=== PATIENT | male | born 1970 | race Caucasian/White ===

== ENCOUNTER 2018-04-24 09:21 | Emergency (ER) | payer OTHER ==
[2018-04-24 09:25] VITALS: BP 154/98
--- NOTE | 2018-04-24 09:38 | EDPHY ---
General Time Seen by Provider: 04/24/18 09:27 Narrative: CHIEF COMPLAINT: Lacerations to right fingers HISTORY OF PRESENT ILLNESS: Patient presents with complaints of lacerations right fingers. He says he was carrying a glass bottle that shattered when he dropped it. He sustained lacerations to the right ring and pinky finger. This happened just prior to arrival. The lacerations on the palm of the hand. Significant bleeding that has caused him to be very anxious. He has moderate pain with moving them. He denies any difficulty bending or straightening them, but says he has not fully tested them. No numbness or tingling. No weakness. No injury elsewhere. Tetanus up-to-date. No other associated complaints or modifying factors. TIME OF INJURY: She prior to right TETANUS STATUS: Less than 5 years ago MEDICAL/SURGICAL/SOCIAL HISTORY: Uncomplicated medical history. Nonsmoker. 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 Right-hand dominant REVIEW OF SYSTEMS: Ten systems reviewed and are negative unless otherwise noted in the HPI EXAMINATION General Appearance: Alert, no distress. Anxious and pacing around the room. Head: normocephalic, atraumatic Cardiovascular: Symmetric radial pulses. Brisk cap refill on the affected fingers of the right hand. There is nonpulsatile bleeding from lacerations on the right ring and little fingers. Neurological: A&O, 2 point sensory symmetric, vessel master and interossei strength symmetric Skin: Warm and dry, no rash. Curvilinear and jagged lacerations to the palmar aspects of right ring and little fingers. These are approximately 2.5 cm each. There is subcutaneous tissue exposed. Unable to examine for deep tissue injuries given the patient's presentation. Extremities: Tenderness of the fingers of lacerations on the right ring and pinky. Unable to fully test range of motion at this time as the patient is very anxious. DIFFERENTIAL DIAGNOSES: Including but not limited to complex lacerations, simple lacerations, laceration tendon injury, laceration with vascular injury. MDM: 9:40 a.m. Lacerations to the right hand involving the little finger and ring finger. Patient is very anxious and I have not able to fully test is range of motion, thus I have administered digital blocks and will re-evaluate. 10:05 a.m. Patient re-evaluated. He is now resting more comfortably after the Ativan and digital blocks. I am able to fully examine the fingers. He has full flexion extension of the fingers including superficialis and profundus of the flexors. There is no pulsatile bleeding. No foreign body. No exposure of the tendons or bony structures. Proceed with irrigation and repair. X-rays unremarkable for any large foreign body. There was a punctate foreign body that was removed with irrigation. 11:30 a.m. Lacerations have been repaired. These are complicated lacerations that will require re-evaluation. There is 1 small area of indentation of the finger because of subcutaneous fat removal. Excellent approximation of the wound borders. He will be placed in nonadherent dressing and splint to the finger. We discussed follow up with primary care physician for recheck as well as ED precautions for signs of infection. Prophylactic Keflex. Short course of pain medication. Daily wound care discussed. He is comfortable this plan and discharged home stable condition. PROCEDURE: Laceration repair, 1. Consent: Verbal Location: Right pinky finger, horizontal Length of repair: 2.5 cm Complexity: Complex Layer involvement: Single Anesthesia: Digital block Irrigation: Extensive Debridement: None Procedure description: Following good anesthesia, the wound was copiously irrigated. Wound bed was explored with a sterile glove, and there is no foreign body noted. No tendinous injury. Wound borders were approximated well with good hemostasis. Tolerated well without complication. Suture/Staple material: 5-0 Prolene, 8 simple interrupted sutures Wound care: Routine as discussed Suture/Staple removal: 10 Days PROCEDURE: Laceration repair, 2. Consent: Verbal Location: Right pinky finger, vertical Length of repair: 1 cm Complexity: Simple Layer involvement: Single Anesthesia: Digital block Irrigation: Extensive Debridement: None Procedure description: Following good anesthesia, the wound was copiously irrigated. Wound bed was explored with a sterile glove, and there is no foreign body noted. No tendinous injury. Wound borders were approximated well with good hemostasis. Tolerated well without complication. Suture/Staple material: 5-0 Prolene, 2 simple ruptured sutures Wound care: Routine as discussed Suture/Staple removal: 7-10 Days PROCEDURE: Laceration repair, 3. Consent: Verbal Location: Right ring finger, lateral Length of repair: 5 cm Complexity: Complex Layer involvement: Single Anesthesia: Digital block Irrigation: Extensive Debridement: None Procedure description: Following good anesthesia, the wound was copiously irrigated. Wound bed was explored with a sterile glove, and there is no foreign body noted. No tendinous injury. Wound borders were approximated well with good hemostasis. Tolerated well without complication. Suture/Staple material: 5-0 Prolene, 14 simple interrupted sutures Wound care: Routine as discussed Suture/Staple removal: 7-10 Days PROCEDURE: Laceration repair, 4. Consent: Verbal Location: Right ring finger, medial Length of repair: 1 cm Complexity: Simple Layer involvement: Single Anesthesia: Digital block Irrigation: Extensive Debridement: None Procedure description: Following good anesthesia, the wound was copiously irrigated. Wound bed was explored with a sterile glove, and there is no foreign body noted. No tendon injury Wound borders were approximated well with good hemostasis. Tolerated well without complication. Suture/Staple material: 5-0 Prolene, 1 simple interrupted suture Wound care: Routine as discussed Suture/Staple removal: 7-10 Days PROCEDURE: Digital Block, 1. Indication: Finger laceration Consent: Verbal Location: Right pinky finger Anesthesia: Lidocaine 1% plain, 0.25% Marcaine plain, 5mL Description: Base of the finger was prepped. The above was infused without difficulty. Tolerated well. Good anesthesia. Complications: None PROCEDURE: Digital Block, 2. Indication: Finger laceration Consent: Verbal Location: Right ring finger Anesthesia: Lidocaine 1% plain, 0.25% Marcaine plain, 5mL Description: Base of the finger was prepped. The above was infused without difficulty. Tolerated well. Good anesthesia. Complications: None SUPERVISION: This patient was independently evaluated without direct involvement of or examination by the attending physician. ED Precautions: Worsening pain. Erythema, edema, cyanosis, pallor, paresthesia or anesthesia. - Diagnostics Imaging Results: Imaging Impressions Hand X-Ray 04/24/18 09:38 Impression: Possibly a punctate foreign body of the fifth digit. - History Smoking Status: Current some day smoker - Objective Vital Signs: Initial Vital Signs Temperature (C) 98.1 F 04/24/18 09:23 Heart Rate 84 04/24/18 09:23 Respiratory Rate 20 04/24/18 09:23 Blood Pressure 154/98 H 04/24/18 09:23 O2 Sat (%) 98 04/24/18 09:23 O2 Delivery Mode Room Air Allergies/Adverse Reactions: No Known Allergies Allergy (Verified 04/24/18 09:22) Home Medications: Medication Instructions Recorded Cephalexin [Keflex (*)] 500 mg PO QID #28 cap 04/24/18 Statin 04/24/18 oxyCODONE HCL/ACETAMINOPHEN 1 each PO Q4-6PRN PRN #5 tablet 04/24/18 [Percocet 5-325 mg Tablet] Medications Given: Discontinued Medications Lorazepam (Ativan) 1 mg PO EDNOW ONE Stop: 04/24/18 09:40 Last Admin: 04/24/18 09:46 Dose: 1 mg Lorazepam (Ativan) 1 mg PO EDNOW ONE Stop: 04/24/18 10:30 Last Admin: 04/24/18 10:31 Dose: 1 mg Departure - Departure Disposition: Home, Routine, Self-Care Clinical Impression: Complicated laceration of finger Qualifiers: Encounter type: initial encounter Qualified Code(s): S61.219A - Laceration without foreign body of unspecified finger without damage to nail, initial encounter Finger laceration Qualifiers: Encounter type: initial encounter Finger: ring finger Damage to nail status: without damage Foreign body presence: with foreign body Laterality: right Qualified Code(s): S61.224A - Laceration with foreign body of right ring finger without damage to nail, initial encounter Condition: Good Instructions: Finger Laceration (ED) Additional Instructions: 1. Ice and elevation often as needed 2. Keep your dressings in place for 48 hr. Then remove, clean once daily and apply thin layer bacitracin 3. Keep your wound clean, dry and covered until sutures removed 4. Antibiotics as prescribed to completion 5. Return here in 10 days for suture removal Referrals: Abran Sullivan MD [Primary Care Provider] - As per Instructions Prescriptions: Cephalexin [Keflex (*)] 500 mg PO QID #28 cap oxyCODONE HCL/ACETAMINOPHEN [Percocet 5-325 mg Tablet] 1 each PO Q4-6PRN PRN #5 tablet PRN Reason: Pain, Breakthrough
[2018-04-24] MEDS ORDERED: LORazepam 1 MG TAB PO ONE ×2 (09:39→10:29)
== END 2018-04-24 12:31 | disposition home or self-care (01) ==
PROC: 0HQFXZZ Repair Right Hand Skin, External Approach (ICD-10-PCS; principal; 2018-04-24)
DX: S61.214A Laceration without foreign body of right ring finger without damage to nail, initial encounter (principal); S61.216A Laceration without foreign body of right little finger without damage to nail, initial encounter; F17.200 Nicotine dependence, unspecified, uncomplicated; W25.XXXA Contact with sharp glass, initial encounter